=== PATIENT | male | born 2000 | race Caucasian/White ===

== ENCOUNTER 2020-07-23 10:42 | Outpatient (REF) | payer OTHER, SELFPAY | END 2020-07-23 10:43 | disposition home or self-care (01) | LOC: HO.LAB 10:42 | PROVIDERS: Visit Provider Internal Medicine | DX: Z20.828 Contact with and (suspected) exposure to other viral communicable diseases (principal) | CPT/HCPCS: C9803; U0003 ==

== ENCOUNTER 2020-10-24 07:51 | Emergency (ER) | payer OTHER, SELFPAY ==
--- NOTE | ~2020-10-24 | US_ITS ---
EXAMINATION: US SCROTUM CLINICAL INFORMATION: Swelling and pain. COMPARISON: None TECHNIQUE: A sonogram of the scrotum was performed assessing day-scale appearance and color Doppler flow. Spectral Doppler analysis of the arterial and venous flow were performed in the testes bilaterally. FINDINGS: RIGHT: Right testicle measures 5.3 x 2.5 x 3.1 cm, volume 21.5 mL. No focal testicular parenchymal lesions are visualized. Spectral Doppler analysis of the arterial and venous flow is normal in the right testis. Right epididymal head is normal size. There is a small anechoic cyst in the head measuring 0.3 x 0.3 x 0.3 cm.. No right hydrocele or varicocele is seen. Right epididymal Doppler flow is normal. LEFT: Left testicle measures 5.3 x 2.4 x 3.1 cm, volume 20.6 mL. No focal testicular parenchymal lesions are visualized. Spectral Doppler analysis of the arterial and venous flow is normal in the left testis. Left epididymal head is normal size with a small anechoic cyst in the head measuring 0.4 x 0.3 x 0.3 cm. No left hydrocele or varicocele is seen. Left epididymal Doppler flow is normal US/US scrotum IMPRESSION: Normal ultrasound testes with normal flow. Bilateral epididymal head cyst. Normal Doppler flow seen to both epididymides. No hydrocele or varicocele seen.
[2020-10-24 08:20] VITALS: BP 153/97; PULSE 75; RESP 18; TEMP 36.2; O2SAT 98; BMI 30.9
--- NOTE | 2020-10-24 08:27 | ED.MALEGU ---
HPI - Male Genitourinary General Chief complaint: Urogenital-Male Stated complaint: genitle problem Time Seen by Provider: 10/24/20 08:20 Source: patient Mode of arrival: ambulatory Limitations: no limitations History of Present Illness HPI Narrative: 20-year-old male previously healthy in with multiple complaints. Complaining of 1 year of penis pain, weaker stream of urine, difficulty getting an erection, intermittent penile discharge post voiding, intermittent testicular pain and discoloration. Is sexually active and does not use contraception. Not been seen by primary care or any other specialists for same. Related Data Previous Rx's Medication Instructions Recorded doxycycline monohydrate 100 mg PO BID #14 cap 10/24/20 Allergies Allergy/AdvReac Type Severity Reaction Status Date / Time No Known Allergies Allergy Verified 10/24/20 08:30 [No Known Allergies*] Review of Systems Review of Systems: Yes all other systems are reviewed and are negative Constitutional: Constitutional: Reports no additional constitutional complaints, Denies body ache(s), Denies chills, Denies fever(s), Denies headache(s) and Denies weakness Eyes: Eyes: Reports no additional eye complaints and Denies change in vision ENT: Reports system reviewed and no additional complaints, except as documented, Denies dizziness, Denies headache(s), Denies nasal congestion, Denies nasal discharge and Denies neck pain Cardiovascular: Cardiovascular: Reports no additional cardiovascular complaints, Denies chest pain, Denies leg edema and Denies dyspnea Respiratory: Respiratory: Reports no additional respiratory complaints, Denies cough and Denies dyspnea Gastrointestinal: Gastrointestinal: Reports no additional gastrointestinal complaints, Denies abdominal pain, Denies diarrhea, Denies nausea and Denies vomiting Genitourinary: Genitourinary: Reports oliguria, Reports difficulty urinating, Reports erectile dysfunction, Reports penile discharge, Reports testicular pain, Reports urinary hesitancy and Denies urinary incontinence Musculoskeletal: Musculoskeletal: Reports no additional musculoskeletal complaints, Denies back pain, Denies arthralgias, Denies joint swelling, Denies neck pain, Denies numbness and Denies tingling Integumentary/Breasts: Skin/Breast: Reports system reviewed and no additional complaints, except as docu and Denies rash Neurologic: Reports system reviewed and no additional complaints, except as documented, Denies Abnormal speech present, Denies dizziness, Denies headache(s), Denies numbness, Denies tingling and Denies weakness PMFSH Past Medical History Attestation statement: The following information was validated with the patient. Source: old records reviewed and nursing notes reviewed Medical History No known health problems Social History Social History Advance Directives: No Advance Directives Information Provided: No Physical Exam Vital Signs: Vital Signs: Last Vital Signs Temp 97.2 F 10/24/20 08:20 Pulse 75 10/24/20 08:20 Resp 18 10/24/20 08:20 BP 153/97 H 10/24/20 08:20 Pulse Ox 98 10/24/20 08:20 Body Mass Index 30.9 Const: General: cooperative, healthy appearing, comfortable and no acute distress Orientation/consciousness: patient oriented x3 Limitations: no limitations HENMT: Head: Yes normal to inspection Ears: hearing grossly normal bilaterally General nose exam: Normal external nose present Face and sinus: Yes normal facial exam Mouth: Normal oral and palatal mucosa present Throat: Yes posterior oropharynx normal Eyes: General: appearance normal, both eyes and all related structures Pupils: Equal, round and reactive pupils present Neck: Neck: Yes normal visual inspection Chest: Chest palpation & inspection: normal inspection of the chest Resp: Effort & Inspection: normal respiratory effort Auscultation: clear to auscultation bilaterally Cardio: Rate: regular rate Rhythm: regular rhythm Peripheral pulses: Peripheral pulses 2+ throughout GI: Inspection: Yes normal to inspection Palpation (GI): Soft to palpation and nontender Auscultation: normal bowel sounds : Other: 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 General Exam: Yes normal external exam Penis: normal penis and uncircumcised Meatus: meatus normal and no meatla discharge Scrotum: scrotum normal, no ecchymosis, not edematous, not erythematous, testes descended bilaterally, no masses and no scrotal swelling Testes: Testes normal, no epidiymal masses, no epidiymal tenderness, no testicular mass, no testicular swelling and testicular tenderness (mild diffuse ) Back/Spine/Pelvis: Thoracic/Lumbar Spine: thoracic and lumbar spine normal to inspection Skin: General skin exam: no rashes or lesions noted Neuro: General: patient oriented x3, no focal motor deficits and normal sensation to monofilament Cranial nerves: Yes Equal, round and reactive pupils present Cognition (Neuro): normal cognition Speech: No Abnormal speech present Gait exam (Neuro): Normal gait present Motor exam (neuro): 5/5 motor strength present throughout Extrem: General: Yes normal to inspection Course Course Course Narrative: 20-year-old male here with multiple complaints x1 year. Mild diffuse bilateral testicular tenderness with no obvious abnormality. Will check UA, GC, ultrasound. 1040-ultrasound shows normal ultrasound testes with normal flow. Bilateral epididymal head cyst. Normal Doppler flow seen to both epididymides. No hydrocele or varicocele seen. UA is negative. GC is pending. Patient was given ceftriaxone 500 mg IM. Will send home on doxycycline twice daily x7 days. Referred to urology for follow-up for multiple complaints. Reviewed worrisome signs and symptoms and when to return to the emergency department. Comfortable discharge home. MDM - Male Genitourinary Medical Records Attestation: I reviewed the patient's medical records. Lab Data Attestation: I reviewed the patient's lab results. Labs: Lab Results 10/24/20 10/24/20 Range/Units 08:58 08:58 Urine Color YELLOW Urine Appearance CLEAR Urine pH 7.0 (5.0-8.0) Ur Specific Ledbetter 1.010 (1.005-1.025) Urine Protein NEG (NEG-TRACE) MG/DL Urine Glucose (UA) NEG (NEG) MG/DL Urine Ketones 5 (NEG) MG/DL Urine Blood NEG (NEG) Urine Nitrite NEG (NEG) Ur Leukocyte Esterase NEG (NEG) Chlam trachomat DNA PCR Cancelled N.gonorrhoeae DNA (PCR) Cancelled Imaging Data scrotum US: Attestation: I personally reviewed and interpreted this imaging study as follows: Radiologist's impression: EXAMINATION: US SCROTUM CLINICAL INFORMATION: Swelling and pain. COMPARISON: None TECHNIQUE: A sonogram of the scrotum was performed assessing day-scale appearance and color Doppler flow. Spectral Doppler analysis of the arterial and venous flow were performed in the testes bilaterally. FINDINGS: RIGHT: Right testicle measures 5.3 x 2.5 x 3.1 cm, volume 21.5 mL. No focal testicular parenchymal lesions are visualized. Spectral Doppler analysis of the arterial and venous flow is normal in the right testis. Right epididymal head is normal size. There is a small anechoic cyst in the head measuring 0.3 x 0.3 x 0.3 cm.. No right hydrocele or varicocele is seen. Right epididymal Doppler flow is normal. LEFT: Left testicle measures 5.3 x 2.4 x 3.1 cm, volume 20.6 mL. No focal testicular parenchymal lesions are visualized. Spectral Doppler analysis of the arterial and venous flow is normal in the left testis. Left epididymal head is normal size with a small anechoic cyst in the head measuring 0.4 x 0.3 x 0.3 cm. No left hydrocele or varicocele is seen. Left epididymal Doppler flow is normal US/US scrotum IMPRESSION: Normal ultrasound testes with normal flow. Bilateral epididymal head cyst. Normal Doppler flow seen to both epididymides. No hydrocele or varicocele seen. Discharge Plan Discharge Clinical Impression: Concern about STD in male without diagnosis Patient Disposition: Home, Self-Care Instructions: Sexually Transmitted Diseases (ED) Additional Instructions: For your complaints of difficulty with urine stream, difficulty with erections and pain we will refer you to urology. Please call for appointment We are treating you for presumed STD's. Take all of your antibiotics. We will call you in 1-2 days if your test results are positive. If you are positive you will need to re-test in 7 days at [facility]. No sex until you are sure STD testing is negative. Prescriptions: New doxycycline monohydrate 100 mg capsule 100 mg PO BID Qty: 14 RF: 0 Referrals: Rd Mann MD [Physician] - 2 days Interventions: ED Discharge Assessment Last Done: 10/24/20 11:11 Discharge Date/Time: 10/24/20 11:12
[2020-10-24 09:22] LABS: Glucose Urine UA NEG (NEG); Leukocyte Esterase Urine NEG (NEG); Nitrite Urine NEG (NEG); Urine Blood NEG (NEG); Urine Ketones 5 MG/DL (NEG); Urine Protein NEG (NEG-TRACE)
--- NOTE | 2020-10-24 09:31 | PC.NURSE ---
PT TO ULTRASOUND
[2020-10-24 09:40] LABS: Appearance Urine CLEAR; Color Urine YELLOW
[2020-10-24] MEDS: cefTRIAXone sodium 500 MG, Lidocaine HCl 1 % MPF 1 ML IM (10:46)
[2020-10-26 01:18] LABS: C. trachomatis RNA TMA NOT DETECTED (NOT DETECTED); N. gonorrhoeae RNA TMA NOT DETECTED (NOT DETECTED)
== END 2020-10-24 11:12 | disposition home or self-care (01) ==
PROVIDERS: Nurse Practitioner Family; Emergency Provider Emergency Medicine
DX: Z20.2 Contact with and (suspected) exposure to infections with a predominantly sexual mode of transmission (principal); N50.3 Cyst of epididymis
CPT/HCPCS: 36415; 76870; 81003; 87491; 87591; 96372; 99283; 99284; J0696